=== PATIENT | male | born 1995 | race Caucasian/White ===

== ENCOUNTER 2019-05-05 22:01 | Emergency (ER) | payer BC ==
[~2019-05-05] VITALS: Ht 195.6 cm; Wt 108.2 kg
[2019-05-05 22:17] VITALS: Ht 195.6 cm; Wt 108.2 kg
[2019-05-05] MEDS ORDERED: SUBOXONE 2 MG-01 TAB SL (22:23)
[2019-05-05 23:37] LABS: CALC OSMOLALITY 280 mosm/kg (275-300); CALCIUM 9.1 mg/dL (8.5-10.1); CARBON DIOXIDE 27.3 mmol/L (21.0-32.0); CHLORIDE - SERUM 102 mmol/L (98-107); CREATININE - SERUM 0.8 mg/dL (0.6-1.3); GLUCOSE 110 mg/dL (74-106); POTASSIUM - SERUM 4.8 mmol/L (3.5-5.1); SODIUM 140 mmol/L (136-145); UREA NITROGEN 14 mg/dL (7-18); eGFR NON AFRICAN AMERICAN > 90 mL/min (90-120)
[2019-05-05 23:43] LABS: ALBUMIN 4.3 g/dL (3.4-5.0); ALKALINE PHOSPHATASE 70 U/L (30-120); ALT (SGPT) 22 U/L (10-68); BILIRUBIN - TOTAL 1.01 mg/dL (0.2-1.3); LIPASE 75 U/L (73-393); PROTEIN - SERUM 7.8 g/dL (6.4-8.2)
[2019-05-05 23:57] LABS: HEMOGLOBIN 13.4 g/dL (13.5-17.5); LYMPHOCYTES 5.8 % (15-50); MCH 26.9 pg (26.0-34.0); MCHC 34.4 g/dL (31.0-37.0); MCV 78.3 fL (80.0-100.0); MEAN PLATELET VOLUME 11.1 fL (7.4-10.4); NEUTROPHILS 88.9 % (40-80); PLATELET COUNT 135 10x3/uL (130-400); RBC 4.98 10x6/uL (4.20-6.10); RDW 13.2 % (11.5-14.5); WBC 12.2 10x3/uL (4.8-10.8)
[2019-05-06 01:34] LABS: BILIRUBIN NEGATIVE (NEGATIVE); GLUCOSE NEGATIVE (NEGATIVE); KETONE SMALL mg/dL (NEGATIVE); NITRITE NEGATIVE (NEGATIVE); SPECIFIC GRAVITY 1.015 (1.005-1.020); UROBILINOGEN NORMAL (NORMAL)
[2019-05-06] MEDS ORDERED: ZOFRAN8 MG PO (01:38)
[2019-05-06 01:53] VITALS: BP 125/78
== END 2019-05-06 01:44 | disposition home or self-care (01) ==
LOC: D.ER 22:01
PROVIDERS: Family Medicine
DX: K52.9 Noninfective gastroenteritis and colitis, unspecified (principal); R11.2 Nausea with vomiting, unspecified; F11.20 Opioid dependence, uncomplicated; Z72.0 Tobacco use

== ENCOUNTER 2020-07-20 20:55 | Emergency (ER) | payer BC ==
[~2020-07-20] VITALS: Ht 195.6 cm; Wt 104.5 kg
[~2020-07-20 20:55] MED LIST: SUBOXONE 2 MG-01 TAB SL; ZOFRAN8 MG PO
[2020-07-20 21:15] VITALS: BP 119/70; Ht 195.6 cm; Wt 104.5 kg
[2020-07-20] MEDS ORDERED: LEXAPRO10 MG PO (23:14)
== END 2020-07-20 23:30 | disposition home or self-care (01) ==
LOC: D.ER 20:55
DX: R07.89 Other chest pain (principal); F41.9 Anxiety disorder, unspecified; R60.0 Localized edema